=== PATIENT | male | born 1970 ===

== ENCOUNTER → 2017-04-26 | Outpatient (CLI) | payer OTHER | LOC: GMAM 15:05 | PROVIDERS: ATTEND Family Medicine | DX: Z01.810 Encounter for preprocedural cardiovascular examination (principal) ==

== ENCOUNTER → 2017-04-26 | Outpatient (CLI) | payer OTHER | LOC: GMAM 16:40 | PROVIDERS: ATTEND Family Medicine | DX: M79.672 Pain in left foot (principal); Z01.810 Encounter for preprocedural cardiovascular examination ==